=== PATIENT | male | born 1970 | race Caucasian/White ===

== ENCOUNTER 2025-03-14 09:43 | Emergency (ER) | payer OTHER, SELFPAY ==
[2025-03-14] VITALS (16 sets, daily range): BP systolic 120–140; BP diastolic 83–107; PULSE 58–67; RESP 11–21; TEMP 35.9; O2SAT 95–100
[2025-03-14 10:00] LABS: Glucose, Point-of-Care* 166 mg/dl (60-115)
--- NOTE | 2025-03-14 10:18 | CRLHL7_ITS ---
For Patients: As a result of the Century Cures Act, medical imaging exams and procedure reports are released immediately into your electronic medical record. You may view this report before your referring provider. If you have questions, please contact your health care provider. INDICATION: Headache starting at 8 o`clock in the morning COMPARISON: None TECHNIQUE: CT examination of the head was performed as axial sections without intravenous contrast. Images were obtained from the vertex of the skull through the skull base. Please note that all CT scans at this facility use dose modulation, iterative reconstruction, and/or weight-based dosing when appropriate to reduce radiation dose to as low as reasonably achievable. FINDINGS: There is a large subarachnoid hemorrhage noted. This is mainly in the perimesencephalic cistern and the prepontine cistern. This appears to extend partially down the spinal canal as visualized. There is also a small amount of intraventricular hemorrhage near the foramina of Mon[place]. There is also possible that this focal abnormality represents a colloid cyst measuring 6 millimeters. Of note, colloid cysts tend to obstruct rather than blade. There is no evidence of hydrocephalus. There is no definite intraparenchymal hemorrhage. The visualized portions of the orbits are normal in appearance. The osseous structures are normal in their appearance with no sign of abnormality in the skull base or calvarium. I discussed the above findings with Dr. Ismael San at 11:17 a.m. on March 14, 2025 IMPRESSION: 1. Large subarachnoid hemorrhage. This is mainly in the perimesencephalic cistern, prepontine cistern and interpeduncular cistern but partially extends down the spinal canal is visualized. 2. A small hyperdense focus is noted near the foramina of [place] measuring about 6 millimeters. This could be a small colloid cyst or a small focal area of intraventricular hemorrhage. Of note, colloid cyst tend to obstruct rather than bleed. 3. There is no evidence of hydrocephalus. Please note that all CT scans at this facility use dose modulation, iterative reconstruction, and/or weight-based dosing when appropriate to reduce radiation dose to as low as reasonably achievable. Dictated by Arik Marquez MD @ 03/14/2025 11:18:57 AM (Electronically Signed)
--- NOTE | 2025-03-14 10:18 | CRLHL7_ITS ---
For Patients: As a result of the Century Cures Act, medical imaging exams and procedure reports are released immediately into your electronic medical record. You may view this report before your referring provider. If you have questions, please contact your health care provider. INDICATION: Sudden onset occipital headache and neck pain. TECHNIQUE: CTA head using intravenous contrast with bolus tracking, 3D angiographic rendering using maximum intensity projection (MIP) and images permanently archived. CTA neck using intravenous contrast with bolus tracking, 3D angiographic rendering using maximum intensity projection (MIP) and images permanently archived. FINDINGS: CTA head: There is normal opacification of the intracranial vasculature. There is no large vessel occlusion or significant intracranial stenosis. No aneurysm is identified. CTA neck: There is no significant carotid artery stenosis or dissection. There is no significant vertebral artery stenosis or dissection. IMPRESSION: Unremarkable head CTA. Unremarkable neck CTA. Please note that all CT scans at this facility use dose modulation, iterative reconstruction, and/or weight-based dosing when appropriate to reduce radiation dose to as low as reasonably achievable. Dictated by Nghia Peña MD @ 03/14/2025 3:14:31 PM (Electronically Signed)
--- NOTE | 2025-03-14 10:20 | ED.GENADULT ---
HPI - General Adult General Date Seen: 03/14/25 Chief complaint: Headache/Migraine Stated complaint: unspecified complaint Time Seen by Provider: 03/14/25 10:18 History of Present Illness HPI narrative: 55-year-old male presenting to the ER today with his . He is generally healthy. He was recently diagnosed with testosterone insufficiency so on Tuesday had subcutaneous injection of testosterone pellets. He apparently had been given testosterone in the past a few years ago and had an adverse reaction to it. He been healthy Tuesday and Tuesday. This morning he was doing a normal workout including some belem and some upper body workout. He does not remember exactly what he was doing but at roughly around 8:00 a.m. was when he was in the midst of his workout he had onset of a bad headache at the base of his skull on the occiput and pain radiating down his neck into both shoulders. The headache was quite severe and made a miserable. notes he was so uncomfortable he was sweaty at home. Skin is more dry here in the ER. With the headache he was quite anxious. did not notice any slurred speech, facial droop. He did not have any unilateral numbness or weakness down his arms or legs. No pain in his chest or nurse thoracic back. No low back pain. No abdominal pain. Vision was normal. Not blurry or double. He has no history of headaches or similar events. He is not anticoagulated. Other than testosterone no medications. He has not had any medicine for pain yet. No allergies. Related Data Home Medications ?Medication ?Instructions ?Recorded ?Confirmed No Known Home Medications 03/14/25 03/14/25 Allergies Allergy/AdvReac Type Severity Reaction Status Date / Time No Known Drug Allergies Allergy Verified 03/14/25 09:51 Exam Narrative: Exam Narrative: Constitutional: Appears well-developed and well-nourished. Alert. He reports that he very uncomfortable pain /10. At the same time he has poor eye contact. He is keeping his head resting on the pillow, laying in the right lateral decubitus position. Times actually xin is face in pillow. Sometimes it is difficult to understand because he has his face under film blanket. Frequent yawning.. HENT: Head: Atraumatic. Nose: Nose normal. Mouth/Throat: Oral mucosa is clear and moist. no trismus. Pharynx normal. Tonsils symmetric. No tonsillar enlargement, erythema, or exudate. Eyes: Conjunctivae normal. EOM normal. Pupils equal, round, and reactive to light. No scleral icterus. Neck: Normal range of motion. Neck supple. No tracheal deviation present. Cardiovascular: Normal rate, regular rhythm. No gallop. No friction rub. No murmur heard. Symmetric radial artery pulses Pulmonary/Chest: Effort normal. No stridor. No respiratory distress. No wheezes. No rales. No rhonchi . No tenderness. Abdominal: Soft. Bowel sounds normal. No distension. No mass. No tenderness. No rebound. No guarding. Musculoskeletal: RUE: Normal range of motion. No tenderness. No deformity LUE: Normal range of motion. No tenderness. No deformity RLE: Normal range of motion. No edema. No tenderness. No deformity LLE: Normal range of motion. No edema. No tenderness. No deformity Neurological: Alert and oriented to person, place, and time. Normal strength. CN II-VII intact. No sensory deficit. GCS eye subscore is 4. GCS verbal subscore is 5. GCS motor subscore is 6. Normal coordination Skin: Skin is warm and dry. No rash noted. No pallor. Normal capillary refill. Psychiatric: Normal mood. Normal affect. Const: Vital Signs, click to edit/add: Vital Signs - 24 hr 03/14/25 09:52 03/14/25 10:17 03/14/25 10:30 Temperature 96.7 F L Pulse Rate 64 63 Pulse Rate [Pulse Oximeter] 58 L Respiratory Rate 14 12 14 Blood Pressure Blood Pressure [Le ft Upper Arm] 120/83 Pulse Oximetry 100 100 [facility] 03/14/25 10:32 03/14/25 10:45 03/14/25 11:03 Temperature Pulse Rate 59 L 66 67 Pulse Rate [Pulse Oximeter] Respiratory Rate 21 Blood Pressure 126/107 H Blood Pressure [Le ft Upper Arm] Pulse Oximetry 100 98 98 Oxygen Delivery Nd thod 03/14/25 11:04 03/14/25 11:15 03/14/25 11:30 Temperature Pulse Rate 66 64 Pulse Rate [Pulse Oximeter] Respiratory Rate 15 16 11 L Blood Pressure 140/85 H Blood Pressure [Le ft Upper Arm] Pulse Oximetry 98 98 Oxygen Delivery Me thod 03/14/25 11:33 Temperature Pulse Rate Pulse Rate [Pulse Oximeter] 65 Respiratory Rate 14 Blood Pressure Blood Pressure [Le ft Upper Arm] 131/89 Pulse Oximetry Oxygen Delivery Me thod Course Vital Signs Vital signs: Initial Vital Signs Temperature 96.7 F L 03/14/25 09:52 Temperature Source Temporal Artery Scan 03/14/25 09:52 Pulse Rate 58 L 03/14/25 09:52 Respiratory Rate 14 03/14/25 09:52 Blood Pressure 120/83 03/14/25 09:52 Blood Pressure Mean 95 03/14/25 09:52 Blood Pressure Position Supine 03/14/25 09:52 Pulse Oximetry 100 03/14/25 09:52 Oxygen Delivery Method Room Air 03/14/25 09:52 Vital Signs Temperature 96.7 F L 03/14/25 09:52 Pulse Rate 58 L 03/14/25 09:52 Respiratory Rate 14 03/14/25 09:52 Blood Pressure 120/83 03/14/25 09:52 Pulse Oximetry 100 03/14/25 09:52 Oxygen Delivery Method Room Air 03/14/25 09:52 Temperature 96.7 F L 03/14/25 09:52 Pulse Rate 65 03/14/25 11:33 Respiratory Rate 14 03/14/25 11:33 Blood Pressure 131/89 03/14/25 11:33 Pulse Oximetry 98 03/14/25 11:15 Oxygen Delivery Method Room Air 03/14/25 09:52 Medications Administered Medications: Discontinued Medications Generic Name Dose Route Start Last Admin Trade Name Brooklynn PRN Reason Stop Dose Admin Fentanyl 50 mcg 03/14/25 11:24 03/14/25 11:31 Fentanyl 100 Mcg/2 Ml Inj IVP 03/14/25 11:25 50 mcg ONCE ONE Administration Sodium Chloride 1,000 mls @ 1,000 mls/hr 03/14/25 10:30 03/14/25 10:35 0.9 % Sodium Chloride 1000 Ml IV 03/14/25 11:29 1,000 mls/hr .Q1H DAVID Administration Ketorolac Tromethamine 15 mg 03/14/25 10:18 03/14/25 10:35 Ketorolac 15 Mg/Ml Inj IVP 03/14/25 10:19 15 mg ONCE ONE Administration Ondansetron HCl 4 mg 03/14/25 10:18 03/14/25 10:35 Ondansetron 2 Mg/Ml Inj IVP 03/14/25 10:19 4 mg ONCE ONE Administration Medical Decision Making MDM Narrative Medical decision making narrative: 55-year-old gentleman presenting to the ER today with abrupt onset of occipital headache and neck pain this started this morning while he was working out. He and his was concerned this was a side effect of a recent testosterone subcutaneous injection. However differential is broad including subarachnoid, cervical artery dissection, intracranial hypertension, less likely meningitis since he is not having a fever, as well as other causes of headache I recommended treatment with supportive medications and workup. Although they are concerned about getting his testosterone supplement removed, they do agree to do workup for other causes. Initial neurologic exam shows nothing focal but he is drowsy. GCS fluctuates between 15 and 14. No other focal deficits. CT scan noncontrast came back concerning for subarachnoid hemorrhage. I received a phone call from Radiology about this finding. Immediately upon I recheck the patient. He says no improvement with initial round of medications. Additional fentanyl ordered. Blood pressure had been 126, now is 140 systolic. At this point not high enough to require nicardipine drip. We immediately reached out to sewer and inspector at [facility]. Discussed with Dr. Church who reviewed the imaging and agrees that the patient does need emergent transfer. After some discussion with the [facility] transfer center to figure out where beds are available and where this patient can get most rapidly get his treatment, it was determined that he needs to go as an ER to ER transfer to the ER at [facility]. He is accepted to transfer to to the ER at [facility] by Dr. Sevilla. Updated the patient and his family. Upon another recheck blood pressure is about 126/80. Heart rate in the 50s. Mental status is still okay. GCS is currently 15. No other focal deficits. He said his headache is not getting much better yet. However still protecting airway. No progressing neurologic symptoms. Blood pressure not high enough yet to require nicardipine drip. Will require careful blood pressure monitoring. Options for transfer discussed. This point [facility] is immediately available. We think this will get him to [facility] more quickly than waiting for a dispatch of air EMS to go by air. He will be transferred by ground, emergent status with lights and sirens direct to the ER at [facility]. He is not on any anticoagulants or anti-platelet agents. Platelet count is normal. INR is normal. Metabolic profile shows normal kidney function and electrolytes. Venous lactic acid is mildly elevated 2.3 which I suspect might be dehydration from his workout this morning an inability to orally hydrate after the onset of his subarachnoid. Subsequent phone call from Radiology is that CTA does not show any obvious aneurysm. Will need further workup, with neuro sewer and inspector and IR when he arrives at the receiving facility. Lab Data Labs: Lab Results 03/14/25 03/14/25 03/14/25 Range/Units 09:58 10:19 10:46 WBC 8.74 (4.50-11.00) K/uL RBC 5.09 (4.30-5.90) m/uL Hgb 15.1 (13.5-17.5) gm/dL Hct 45.8 (37.0-53.0) % MCV 90 (80-100) fL MCH 30 (26-34) pg MCHC 33 (32-36) gm/dL RDW Coeff of Shahid 12.5 (11.5-15.5) % Plt Count 211 (140-440) K/uL Neut % (Auto) 82.4 H (42.0-72.0) % Lymph % (Auto) 11.1 L (20-44) % Metcalfe % (Auto) 5.1 (0.0-11.0) % Eos % (Auto) 0.9 (0.0-7.0) % Baso % (Auto) 0.2 (0.0-3.0) % Neut # (Auto) 7.20 H (1.7-7.0) K/uL Lymph # (Auto) 1.00 (0.90-2.90) K/uL Metcalfe # (Auto) 0.40 (0.00-0.90) K/UL Eos # (Auto) 0.08 (0.00-0.50) K/uL Baso # (Auto) 0.02 (0.00-0.30) K/uL Abs Immat Gran (auto) 0.03 (0.00-0.30) K/uL Imm/Tot Granulo (auto) 0.3 % INR 0.90 L (0.91-1.10) Sodium 137 (135-149) mmol/L Potassium 4.1 (3.6-5.1) mmol/L Chloride 104 (96-114) mmol/L Carbon Dioxide 27 (20-32) mmol/L Anion Gap 6 L (7-15) mEq/L BUN 15 (7-30) mg/dL Creatinine 0.8 (0.5-1.5) mg/dL Estimated GFR 105 ml/min Glucose 142 H (60-115) mg/dL Lactate 2.3 H (0.5-1.9) mmol/L Calcium 9.1 (8.4-10.6) mg/dL POC Glucose 166 H (60-115) mg/dl POC Troponin I 0.01 (0.01-0.04) ng/ml ECG Data Attestation: I personally reviewed and interpreted this ECG as follows: Interpretation: sinus bradycardia Rate 55 HI 158 Normal QRS axis No ST elevation or depression QT 400, STC 382 Critical Care Time Critical Care Time Critical Care Time: Yes Attestation: The patient required my highest level preparedness to intervene emergently and I personally spent this critical care time directly and personally managing the patient. This critical care time included: Obtaining a history; Examining the patient; Pulse oximetry; Ordering and reviewing of studies; Arranging urgent treatment with development of a management plan; Evaluation of patients response to treatment; Frequent reassessment discussions with other providers. This critical care time was performed to assess and manage the high probability of imminent life-threatening deterioration that could result in multiorgan failure. It was exclusive of separate billable procedures and treating other patients and teaching time. Total Critical Care Time in Minutes: 35 Discharge Plan Discharge Clinical Impression: Subarachnoid hemorrhage Patient Disposition: [facility] Condition: Critical Prescriptions: No Action No Known Home Medications Stand Alone Forms: KTM Advance Info Instructions
[2025-03-14] MEDS: ONDANSETRON 2 MG/ML inj 4 MG IVP (10:35)
[2025-03-14 10:52] LABS: Lactate* 2.3 mmol/L (0.5-1.9)
[2025-03-14 10:54] LABS: Hematocrit* 45.8 % (37.0-53.0); Hemoglobin* 15.1 gm/dL (13.5-17.5); Immature Granulocytes Abs Auto 0.03 K/uL (0.00-0.30); Immature Granulocytes Pct Auto 0.3 %; Mean Corpuscular HGB Conc 33 gm/dL (32-36); Mean Corpuscular Hemoglobin 30 pg (26-34); Mean Corpuscular Volume 90 fL (80-100); RDW Coefficient of Variation % 12.5 % (11.5-15.5); Red Blood Count* 5.09 m/uL (4.30-5.90); White Blood Count* 8.74 K/uL (4.50-11.00)
[2025-03-14 11:02] LABS: Troponin, Point-of-Care* 0.01 ng/ml (0.01-0.04)
[2025-03-14 11:10] LABS: INR 0.90 (0.91-1.10); Lymphocytes Absolute Auto 1.00 K/uL (0.90-2.90); Prothrombin Time 12.9 Seconds; Slide Review Reflex No
[2025-03-14 11:13] LABS: Chloride* 104 mmol/L (96-114); Potassium* 4.1 mmol/L (3.6-5.1); Sodium* 137 mmol/L (135-149)
[2025-03-14 11:16] LABS: Anion Gap 6 mEq/L (7-15); Blood Urea Nitrogen* 15 mg/dL (7-30); Calcium* 9.1 mg/dL (8.4-10.6); Carbon Dioxide* 27 mmol/L (20-32); Creatinine* 0.8 mg/dL (0.5-1.5); Estimated Glomerular Filt Rate 105 ml/min; Glucose* 142 mg/dL (60-115)
--- NOTE | 2025-03-14 11:53 | PC.NURSE ---
Obtained verbal signature to transfer. Patient was unable due to pain
== END 2025-03-14 12:15 | disposition short-term general hospital (02) ==
PROVIDERS: Emergency Provider Emergency Medicine; PCP Family Medicine
DX: I60.9 Nontraumatic subarachnoid hemorrhage, unspecified (principal)
CPT/HCPCS: 36415; 70450; 70496; 70498; 80048; 82947; 83605; 84484; 85025; 85610; 93005; 96374; 96375; 96376; 99285; 99291; J1885; J2405; J3010; J7030; Q9967

== ENCOUNTER 2025-03-14 12:02 | Outpatient (CLI) | payer OTHER, SELFPAY | END 2025-03-14 12:03 | disposition home or self-care (01) | LOC: AMB 03-15 11:38 | PROVIDERS: PCP Family Medicine; Visit Provider Emergency Medicine | DX: I60.9 Nontraumatic subarachnoid hemorrhage, unspecified (principal) | CPT/HCPCS: A0425; A0427 ==